=== PATIENT | female | born 1970 | race Caucasian/White ===

== ENCOUNTER 2018-04-25 10:15 | Emergency (ER) | payer SELFPAY ==
[2018-04-25] MEDS ORDERED: Triple Antibiotic Oint 1 GM Packet ONE (11:55)
== END 2018-04-25 12:10 | disposition home or self-care (01) ==
LOC: ERS 10:15
DX: L02.31 Cutaneous abscess of buttock (principal); E03.9 Hypothyroidism, unspecified; Z79.899 Other long term (current) drug therapy
CPT/HCPCS: 10060

== ENCOUNTER 2019-07-25 11:56 | Emergency (ER) | payer SELFPAY ==
[2019-07-25] MEDS ORDERED: Dexamethasone 10 MG/ML VIAL ONE (13:05)
[2019-07-25] MEDS ORDERED: Morphine 4 MG/ML VIAL ONE ×2 (13:05→13:58)
[2019-07-25] MEDS ORDERED: Ondansetron ODT 4 MG TAB ONE (13:05)
[2019-07-25] MEDS ORDERED: Ketorolac Tromethamine 30 MG/ML VIAL ONE (13:05)
== END 2019-07-25 14:08 | disposition home or self-care (01) ==
LOC: ERS 11:56
DX: M62.830 Muscle spasm of back (principal); I10 Essential (primary) hypertension; K21.9 Gastro-esophageal reflux disease without esophagitis; E03.9 Hypothyroidism, unspecified; Z79.899 Other long term (current) drug therapy
CPT/HCPCS: 96372; 99283; J1100; J1885; J2270; Q0162

== ENCOUNTER 2021-04-21 09:58 | Emergency (ER) | payer SELFPAY ==
[2021-04-21] MEDS ORDERED: HYDROcodone/Acetaminophen 7.5/325 mg Tablet ONE (10:47)
== END 2021-04-21 11:26 | disposition home or self-care (01) ==
LOC: ERS 09:58
DX: M54.50 Low back pain, unspecified (principal); G89.29 Other chronic pain; I10 Essential (primary) hypertension; K21.9 Gastro-esophageal reflux disease without esophagitis; E03.9 Hypothyroidism, unspecified; Z79.899 Other long term (current) drug therapy
CPT/HCPCS: 99283

== ENCOUNTER 2021-05-05 16:33 | Emergency (ER) | payer SELFPAY ==
[~2021-05-05 16:33] MED LIST: Magnevist 469MG/ML 20 ML VIAL ONE
[2021-05-05 19:03] LABS: #Basophils 0.1 thou/uL (0.0-0.2); #Eosinphils 0.5 thou/uL (0.0-0.7); #Lymphocytes 3.5 thou/uL (1.20-3.40); #Monocytes 0.8 thou/uL (0.11-0.59); #Neutrophils 8.3 thou/uL (1.40-6.50); %Basophils 1.1 % (0.0-1.0); %Eosinophils 3.9 % (0.0-10.0); %Lymphocytes 26.4 % (21.0-51.0); %Monocytes 6.3 % (0.0-10.0); %Neutrophils 62.5 % (42.0-75.0); Hemoglobin 14.5 g/dL (12.0-16.0); Mean Corpuscular Hemoglobin 30.1 pg (27.0-31.0); Mean Corpuscular Volume 91.1 fL (78.0-98.0); Mean Platelet Volume 7.5 fL (7.4-10.4); Platelet Count 324 thou/uL (130-400); RBC Distribution Width 12.9 % (11.5-14.5); Red Blood Cell (RBC) Count 4.82 mill/uL (4.20-5.40); White Blood Cell (WBC) Count 13.3 thou/uL (4.8-10.8)
[2021-05-05 19:22] LABS: ALT (SGPT) 23 U/L (8-55); AST (SGOT) 19 U/L (5-34); Albumin 4.3 g/dL (3.5-5.0); Alkaline Phosphatase 105 U/L (40-110); Anion Gap 13 mmol/L (10-20); BUN (Urea Nitrogen) 12 mg/dL (7.0-18.7); Bilirubin, Total 0.3 mg/dL (0.2-1.2); Calc. Creatinine Clearance 0 mL/min (70-130); Calcium 9.4 mg/dL (7.8-10.44); Carbon Dioxide 24 mmol/L (22-29); Chloride 107 mmol/L (98-107); Glucose 118 mg/dL (70-105); Potassium 3.8 mmol/L (3.5-5.1); Protein, Total 7.3 g/dL (6.0-8.3); Sodium 140 mmol/L (136-145)
[2021-05-05] MEDS ORDERED: HYDROcodone/Acetaminophen 5/325 mg Tablet ONE (19:37)
== END 2021-05-05 23:18 | disposition home or self-care (01) ==
LOC: ERS 16:33
DX: M54.50 Low back pain, unspecified (principal); M48.061 Spinal stenosis, lumbar region without neurogenic claudication; I10 Essential (primary) hypertension; K21.9 Gastro-esophageal reflux disease without esophagitis; E03.9 Hypothyroidism, unspecified; Z79.899 Other long term (current) drug therapy
CPT/HCPCS: 36415; 72158; 80053; 85025; A9579

== ENCOUNTER 2023-04-21 08:03 | Outpatient (CLI) | payer BC | END 2023-04-21 08:04 | disposition home or self-care (01) | LOC: BICMAMMO 08:03 | PROVIDERS: ATTEND Family Medicine | DX: Z12.31 Encounter for screening mammogram for malignant neoplasm of breast (principal) | CPT/HCPCS: 77063; 77067 ==

== ENCOUNTER 2024-02-16 02:04 | Emergency (ER) | payer BC ==
[2024-02-16] MEDS ORDERED: Ketorolac Tromethamine 30 MG (1 mL) VIAL ONE (02:50)
[2024-02-16] MEDS ORDERED: HYDROcodone/Acetaminophen 10/325 mg Tablet ONE (02:50)
[2024-02-16] MEDS ORDERED: Lorazepam 2 MG/ML VIAL ONE (02:54)
== END 2024-02-16 04:00 | disposition home or self-care (01) ==
LOC: ERS 02:04
DX: M48.061 Spinal stenosis, lumbar region without neurogenic claudication (principal); M54.16 Radiculopathy, lumbar region
CPT/HCPCS: 96372; 99282; J1885; J2060